=== PATIENT | male | born 1970 | race Two or more races ===

== ENCOUNTER 2018-03-24 09:46 | Outpatient (CLI) | payer OTHER ==
[~2018-03-24] VITALS: Ht 152.4 cm; Wt 86.2 kg
[~2018-03-24 09:46] MED LIST: AVALIDE 150-12.1 TA1; KETO10TA2 PO; NAPROXEN500 MG PO
== END 2018-03-24 10:00 | disposition home or self-care (01) ==
LOC: OFIC 805 09:46
DX: H61.23 Impacted cerumen, bilateral (principal); H90.3 Sensorineural hearing loss, bilateral; H93.13 Tinnitus, bilateral

== ENCOUNTER → 2018-11-30 10:05 | Outpatient (CLI) | payer OTHER | END | disposition home or self-care (01) | LOC: LAB 10:05 | DX: N20.0 Calculus of kidney (principal); Z51.81 Encounter for therapeutic drug level monitoring ==

== ENCOUNTER 2018-11-30 11:55 | Outpatient (CLI) | payer OTHER | END 2018-11-30 17:00 | disposition home or self-care (01) | LOC: MRI 11:55 | DX: R42 Dizziness and giddiness (principal); H93.3X3 Disorders of bilateral acoustic nerves | CPT/HCPCS: 70553 ==

== ENCOUNTER 2019-04-03 13:51 | Outpatient (CLI) | payer OTHER | END 2019-04-03 14:03 | disposition home or self-care (01) | LOC: EKG 13:51 | DX: M67.432 Ganglion, left wrist (principal); Z01.810 Encounter for preprocedural cardiovascular examination ==

== ENCOUNTER 2019-04-03 14:31 | Outpatient (CLI) | payer OTHER | END 2019-04-03 14:53 | disposition home or self-care (01) | LOC: RAD 14:31 | DX: M67.432 Ganglion, left wrist (principal) ==

== ENCOUNTER 2020-04-21 09:42 | Outpatient (CLI) | payer OTHER | END 2020-04-21 09:54 | disposition home or self-care (01) | LOC: RAD 09:42 | PROVIDERS: ATTEND Physical Medicine & Rehabilitation | DX: M54.2 Cervicalgia (principal) ==

== ENCOUNTER 2020-09-08 15:36 | Outpatient (CLI) | payer OTHER | END 2020-09-08 15:43 | disposition home or self-care (01) | LOC: RAD 15:36 | PROVIDERS: ATTEND Physical Medicine & Rehabilitation | DX: M16.12 Unilateral primary osteoarthritis, left hip (principal); M06.09 Rheumatoid arthritis without rheumatoid factor, multiple sites ==

== ENCOUNTER 2020-09-09 16:18 | Outpatient (CLI) | payer OTHER | END 2020-09-09 16:24 | disposition home or self-care (01) | LOC: RAD 16:18 | PROVIDERS: ATTEND Physical Medicine & Rehabilitation | DX: M76.52 Patellar tendinitis, left knee (principal); M17.12 Unilateral primary osteoarthritis, left knee ==

== ENCOUNTER 2020-10-30 00:15 | Emergency (ER) | payer OTHER ==
[~2020-10-30] VITALS: Ht 172.7 cm; Wt 88.5 kg
[2020-10-30] MEDS ORDERED: DUI500 PO (04:30)
[2020-10-30] MEDS ORDERED: KETO10TA2 PO (04:31)
== END 2020-10-30 05:20 | disposition home or self-care (01) ==
LOC: ER 00:15
DX: S01.82XA Laceration with foreign body of other part of head, initial encounter (principal); S20.213A Contusion of bilateral front wall of thorax, initial encounter; S70.12XA Contusion of left thigh, initial encounter; V49.9XXA Car occupant (driver) (passenger) injured in unspecified traffic accident, initial encounter; Y93.89 Activity, other specified; Y92.488 Other paved roadways as the place of occurrence of the external cause; Y99.8 Other external cause status

== ENCOUNTER → 2021-06-08 10:31 | Outpatient (CLI) | payer OTHER ==
[~2021-06-08 10:31] MED LIST changes: +DUI500 PO
== END | disposition home or self-care (01) ==
LOC: RAD 10:31
DX: M25.852 Other specified joint disorders, left hip (principal); R10.2 Pelvic and perineal pain

== ENCOUNTER 2022-01-28 10:35 | Outpatient (CLI) | payer OTHER | END 2022-01-28 10:48 | disposition home or self-care (01) | LOC: RAD 10:35 | DX: M25.852 Other specified joint disorders, left hip (principal) ==

== ENCOUNTER 2022-11-15 07:11 | Outpatient (CLI) | payer OTHER | END 2022-11-15 07:19 | disposition home or self-care (01) | LOC: SONOGRAMA 07:11 | PROVIDERS: ATTEND Internal Medicine Gastroenterology | DX: R16.0 Hepatomegaly, not elsewhere classified (principal); K76.0 Fatty (change of) liver, not elsewhere classified ==

== ENCOUNTER 2024-02-06 12:10 | Outpatient (CLI) | payer OTHER | END 2024-02-06 12:15 | disposition home or self-care (01) | LOC: RAD 12:10 | PROVIDERS: ATTEND Internal Medicine Pulmonary Disease | DX: R06.2 Wheezing (principal) ==

== ENCOUNTER 2024-11-12 14:12 | Outpatient (CLI) | payer OTHER | END 2024-11-12 14:25 | disposition home or self-care (01) | LOC: RAD 14:12 | PROVIDERS: ATTEND Internal Medicine Pulmonary Disease | DX: M16.12 Unilateral primary osteoarthritis, left hip (principal); M16.11 Unilateral primary osteoarthritis, right hip; M17.12 Unilateral primary osteoarthritis, left knee; R91.8 Other nonspecific abnormal finding of lung field; J45.31 Mild persistent asthma with (acute) exacerbation ==

== ENCOUNTER 2025-10-07 07:57 | Outpatient (CLI) | payer OTHER ==
[~2025-10-07 07:57] MED LIST changes: +ALTACE5 MG; +METFORMIN HCL1000 MG
== END 2025-10-07 08:00 | disposition home or self-care (01) ==
LOC: SONOGRAMA 07:57
PROVIDERS: ATTEND Internal Medicine Gastroenterology
DX: R16.1 Splenomegaly, not elsewhere classified (principal)